=== PATIENT | female | born 1990 | race Caucasian/White ===

== ENCOUNTER 2017-07-01 10:12 | Emergency (ER) | payer OTHER ==
[2017-07-01 10:37] VITALS: BP 118/62
[2017-07-01] MEDS ORDERED: Acetaminophen TAB* 325 MG PO ONE (11:39)
--- NOTE | 2017-07-01 12:11 | UC ---
Lower Extremity/Ankle HPI - HPI Summary HPI Summary: Fall down one stair last night. She has right ankle and foot pain. She has no prior fx of that ankle. She has some swelling. - History of Current Complaint Chief Complaint: UCLowerExtremity Stated Complaint: RT ANKLE PAIN-SP FALL Time Seen by Provider: 07/01/17 11:35 Hx Obtained From: Patient Hx Last Menstrual Period: 06/12/17 Onset/Duration: Sudden Onset, Lasting Hours Severity Initially: Moderate Severity Currently: Moderate Aggravating Factor(s): Standing, Ambulation Alleviating Factor(s): Rest, Elevation Able to Bear Weight: Yes - Allergies/Home Medications Allergies/Adverse Reactions: Allergies Allergy/AdvReac Type Severity Reaction Status Date / Time No Known Allergies Allergy Verified 07/01/17 10:37 Home Medications: Home Medications Acetaminophen [Acetaminophen Extra Stren] 1,000 mg PO ONCE 07/01/17 [History Confirmed 07/01/17] PMH/Surg Hx/FS Hx/Imm Hx Previously Healthy: Yes Other History Of: Negative For: HIV, Hepatitis B - Surgical History Surgical History: Yes Surgery Procedure, Year, and Place: Tonsillectomy. , 2006, [facility] - Family History Known Family History: Positive: None - Social History Alcohol Use: None Substance Use Type: None Smoking Status (MU): Never Smoked Tobacco Review of Systems Musculoskeletal: Arthralgia All Other Systems Reviewed And Are Negative: Yes Physical Exam Triage Information Reviewed: Yes Appearance: Well-Appearing, No Pain Distress, Well-Nourished Vital Signs: Initial Vital Signs Temp 98 F 07/01/17 10:32 Pulse 91 07/01/17 10:32 Resp 16 07/01/17 10:32 BP 118/62 07/01/17 10:32 Pulse Ox 100 07/01/17 10:32 Vital Signs Reviewed: Yes Eyes: Positive: Conjunctiva Clear ENT: Positive: Normal ENT inspection, Hearing grossly normal, Pharynx normal. Negative: Pharyngeal erythema, Nasal congestion Neck: Positive: Supple, Nontender, No Lymphadenopathy Respiratory: Positive: No accessory muscle use. Negative: Respiratory distress Cardiovascular: Positive: No Murmur, Pulses Normal, Brisk Capillary Refill Abdomen Description: Negative: Distended, Guarding Musculoskeletal: Positive: Edema @ - dorsum of the foot. There is diffuse tenderness of the foot and ankle. No obvious deformity. Neurological: Positive: Alert, Muscle Tone Normal. Negative: Fatigued Psychological: Positive: Age Appropriate Behavior Skin: Negative: rashes Lower Extremity Course/Dx - Differential Dx/Diagnosis Provider Diagnoses: right ankle sprain. Discharge - Discharge Plan Condition: Good Disposition: HOME Patient Education Materials: Ankle Sprain (ED) Referrals: No Primary Care Phys,NOPCP [Primary Care Provider] -
--- NOTE | 2017-07-01 12:13 | RAD ---
INDICATION: Right ankle injury. TECHNIQUE: 3 views of the right ankle were obtained. FINDINGS: Soft tissue swelling is noted along the anterolateral aspect of the ankle. No fracture is seen. Joint spaces appear maintained. IMPRESSION: SOFT TISSUE SWELLING, NO FRACTURE IS SEEN.
--- NOTE | 2017-07-01 12:14 | RAD ---
INDICATION: Right foot injury. TECHNIQUE: 3 views of the right foot were obtained. FINDINGS: There is soft tissue swelling present along the dorsal lateral aspect of the foot. The bones are in normal alignment. No fracture is seen. Joint spaces appear maintained. IMPRESSION: SOFT TISSUE SWELLING, NO FRACTURE IS SEEN.
== END 2017-07-01 12:23 | disposition home or self-care (01) ==
LOC: UCCORT 10:12
DX: S93.401A Sprain of unspecified ligament of right ankle, initial encounter (principal); W10.9XXA Fall (on) (from) unspecified stairs and steps, initial encounter; Y93.9 Activity, unspecified; Y92.9 Unspecified place or not applicable; Y99.9 Unspecified external cause status; Z87.81 Personal history of (healed) traumatic fracture
CPT/HCPCS: 99212; A9270-GY; G0463